=== PATIENT | female | born 1975 | race Caucasian/White ===

== ENCOUNTER → 2017-08-31 | Outpatient (CLI) | payer OTHER ==
--- NOTE | 2017-08-31 09:17 | DIAGNOSTIC IMAGING REPORT ---
L-SPINE MIN 4 VIEWS ROUTINE, SI JOINTS 3 OR MORE VIEWS CLINICAL HISTORY: M54.16 Lumbar radiculopathy [id number] COMPARISON STUDY: None. FINDINGS: No fracture or subluxation. Moderate disc space narrowing at L5-S1. Mild facet degenerative changes within the lower lumbar spine. The sacrum and bilateral sacroiliac joints are within normal limits. No erosions within the sacroiliac joints. IMPRESSION: 1. Moderate degenerative disc disease at L5-S1. 2. No significant abnormality within the sacrum/sacroiliac joints. Electronically signed by: Kavon Mendez M.D. 08/31/2017 9:15 AM Dictated Date/Time: 08/31/2017 9:12 AM
--- NOTE | 2017-08-31 09:17 | DIAGNOSTIC IMAGING REPORT ---
L-SPINE MIN 4 VIEWS ROUTINE, SI JOINTS 3 OR MORE VIEWS CLINICAL HISTORY: M54.16 Lumbar radiculopathy [id number] COMPARISON STUDY: None. FINDINGS: No fracture or subluxation. Moderate disc space narrowing at L5-S1. Mild facet degenerative changes within the lower lumbar spine. The sacrum and bilateral sacroiliac joints are within normal limits. No erosions within the sacroiliac joints. IMPRESSION: 1. Moderate degenerative disc disease at L5-S1. 2. No significant abnormality within the sacrum/sacroiliac joints. Electronically signed by: Kavon Mendez M.D. 08/31/2017 9:15 AM Dictated Date/Time: 08/31/2017 9:12 AM
== END | disposition home or self-care (01) ==
LOC: C.RAD1850 08:46
PROVIDERS: ATTEND Internal Medicine
DX: M51.17 Intervertebral disc disorders with radiculopathy, lumbosacral region (principal)

== ENCOUNTER → 2017-09-17 | Outpatient (CLI) | payer OTHER | END | disposition home or self-care (01) | LOC: C.LAB1850 14:33 | PROVIDERS: ATTEND Internal Medicine Pulmonary Disease | DX: T78.40XA Allergy, unspecified, initial encounter (principal); X58.XXXA Exposure to other specified factors, initial encounter; L50.0 Allergic urticaria; J30.0 Vasomotor rhinitis; R06.2 Wheezing ==

== ENCOUNTER → 2017-09-25 | Outpatient (CLI) | payer OTHER ==
[2017-09-25 10:19] LABS: BLOOD UREA NITROGEN 17 mg/dl (7-18); BUN/CREATININE RATIO 23.2 (10-20); CALCIUM 8.5 mg/dl (8.5-10.1); CARBON DIOXIDE 28 mmol/L (21-32); CHLORIDE 103 mmol/L (98-107); CREATININE 0.74 mg/dl (0.60-1.20); GLUCOSE 91 mg/dl (70-99); POTASSIUM 3.8 mmol/L (3.5-5.1); SODIUM 138 mmol/L (136-145)
[2017-09-25 10:22] LABS: CHOLESTEROL 175 mg/dl (0-200); CHOLESTEROL/HDL RATIO 1.8; HDL CHOLESTEROL 99 mg/dl; LDL CHOLESTEROL CALCULATED 61 mg/dl; TRIGLYCERIDES 73 mg/dl (0-150); VERY LOW DENSITY LIPOPROT CALC 15 mg/dl
== END | disposition home or self-care (01) ==
LOC: C.LAB1850 08:41
PROVIDERS: ATTEND Internal Medicine
DX: Z13.220 Encounter for screening for lipoid disorders (principal); Z13.1 Encounter for screening for diabetes mellitus